=== PATIENT | female | born 1975 | race Caucasian/White ===

== ENCOUNTER 2021-05-18 14:56 | Emergency (ER) | payer OTHER, SELFPAY ==
--- NOTE | ~2021-05-18 | XR_ITS ---
EXAMINATION: XR foot LT min 3V DATE: 05/18/2021 15:24 INDICATION: Left foot injury. TECHNIQUE: 4 views of left foot were obtained. COMPARISON: None. FINDINGS: There is moderate hallux valgus. There is a nondisplaced transverse intra-articular fractur e of base of fifth metatarsal. There is mild osteoarthritis of first and second metatarsophalangeal j oints. IMPRESSION: 1. Nondisplaced transverse intra-articular fracture of base of fifth metatarsal. 2. Mild polyarticular osteoarthritis. Reviewed, dictated and finalized at location A. IMPRESSION: 1. Nondisplaced transverse intra-articular fracture of base of fifth metatarsal . 2. Mild polyarticular osteoarthritis.
[2021-05-18 15:13] VITALS: BP 102/61; PULSE 87; RESP 16; TEMP 37.1; O2SAT 100
--- NOTE | 2021-05-18 15:42 | ED.LOWEXIN ---
HPI - Extremity Injury (Lower) General Chief Complaint: Extremity Injury, Lower Stated Complaint: Left foot Pain Time Seen by Provider: 05/18/21 15:26 Source: patient and RN notes reviewed Mode of arrival: ambulatory Limitations: no limitations History of Present Illness HPI Narrative: Patient presents today complaining of a left foot injury since this morning. She was walking outside and rolled her foot, possibly stepping in a shallow hole. She is currently pain-free at rest, but this increases significantly with any weightbearing. She has been applying ice and elevating her foot. She has been ambulating with crutches. She does report some numbness to the dorsum of her foot and toes. MD complaint: foot injury Related Data Home Medications Medication Instructions Recorded Confirmed desog-e.estradiol/e.estradiol tablet 05/18/21 [Delfina (28)] Allergies Allergy/AdvReac Type Severity Reaction Status Date / Time Sulfa (Sulfonamide Allergy Unknown Verified 05/18/21 15:16 Antibiotics) Review of Systems Review of Systems: CONSTITUTIONAL: Denies body aches, fever, chills, or sweats. EYES: Denies visual changes, redness, or discharge. ENT: Denies rhinorrhea, congestion, sore throat, or otalgia. CARDIOVASCULAR: Denies chest pain, palpitations, or edema. RESPIRATORY: Denies cough or dyspnea. GASTROINTESTINAL: Denies abdominal pain, nausea, vomiting, or diarrhea. GENITOURINARY: Denies dysuria or hematuria. SKIN: Denies rash, itching, or wounds. MUSCULOSKELETAL: Denies back pain, or myalgia.+ Left foot injury NEUROLOGIC: Denies headache, tingling, or weakness.+ Numbness and tingling to the left foot PSYCH: Denies depression or anxiety. PMFSH Comments At time of signature, I have reviewed and agree with nursing past medical, surgical, social and family history unless otherwise noted. Please see nursing chart for further information. There is no relevant family history pertinent to the presenting complaint Exam Narrative: GENERAL: Well-appearing, well-nourished, and in no acute distress. HEAD: Normocephalic, atraumatic. EYES: EOMI. No redness or drainage. Conjunctivae normal. ENT: Mucous membranes pink and moist. NECK: Normal AROM. CHEST: No respiratory distress. EXTREMITIES: Left foot: Tenderness, ecchymosis, and localized edema about the fourth and fifth metatarsals. Distal sensation intact in all toes. Capillary refill normal. Pedal pulse normal. SKIN: Warm, dry, no rash. Capillary refill normal. Normal skin turgor. NEURO: No focal deficits. Alert and oriented x3. PSYCH: Normal affect. No signs of depression or anxiety. Course Vital Signs Vital signs: Vital Signs Temperature 98.8 F 05/18/21 15:13 Pulse Rate 87 05/18/21 15:13 Respiratory Rate 16 05/18/21 15:13 Blood Pressure 102/61 05/18/21 15:13 Pulse Oximetry 100 05/18/21 15:13 Temperature 98.8 F 05/18/21 15:13 Pulse Rate 87 05/18/21 15:13 Respiratory Rate 16 05/18/21 15:13 Blood Pressure 102/61 05/18/21 15:13 Pulse Oximetry 100 05/18/21 15:13 Reviewed Procedures Orthopedic Splinting/Casting Injury #1: Splinting/Casting Date: 05/18/21 Splinting/Casting Time: 15:48 Side: left Lower Extremity Injury Location: foot Lower Extremity Immobilizer: posterior splint Splint: customized in ED OCL: short leg Pre-Procedure Neuro Vascular Exam: normal Post-Procedure Neuro Vascular Exam: normal Additional Comments: Placed by tech MDM - Extremity Injury (Lower) Differential Diagnosis Differential diagnosis: Likely other (Foot fracture, foot sprain, foot contusion, ankle fracture, ankle sprain) Imaging Data Radiologist's impression: ITS Impressions Foot X-Ray 05/18/21 15:29 IMPRESSION: 1. Nondisplaced transverse intra-articular fracture of base of fifth metatarsal. 2. Mild polyarticular osteoarthritis. Critical Care Time Critic
== END 2021-05-18 16:10 | disposition home or self-care (01) ==
PROVIDERS: Emergency Provider Nurse Practitioner
DX: S92.355A Nondisplaced fracture of fifth metatarsal bone, left foot, initial encounter for closed fracture (principal); X50.9XXA Other and unspecified overexertion or strenuous movements or postures, initial encounter
CPT/HCPCS: 29515; 73630; 99204; G0463

== ENCOUNTER 2022-07-13 18:54 | Emergency (ER) | payer OTHER, SELFPAY ==
--- NOTE | 2022-07-13 18:56 | ED.SKABFB ---
HPI - Skin/Abscess/Foreign Bdy General Chief complaint: Skin/Abscess/Foreign Body Stated complaint: rash on hands and feet Time Seen by Provider: 07/13/22 18:56 Source: patient and RN notes reviewed History of Present Illness HPI narrative: Patient is a 47-year-old female presents the urgent care with complaints of a rash to the hands and feet. Patient states she does started a new supplement approximately 2 weeks ago from her chiropractor, Pily. Otherwise, patient denies of any new medications, creams or detergents. Patient states that it started on Thursday and seems to get worse whenever she is wearing socks or in the shower. Patient states she has been taking Zyrtec without much relief. No other acute complaints. No acute distress noted. Patient aware of the plan of care. Some parts of this dictation were generated by voice recognition software and may contain typographical and/or grammatical inaccuracies. Related Data Allergies Allergy/AdvReac Type Severity Reaction Status Date / Time Sulfa (Sulfonamide Allergy Unknown Verified 05/18/21 15:16 Antibiotics) Review of Systems Review of Systems: CONSTITUTIONAL: Denies fever, chills, or sweats. EYES: Denies visual changes, redness, or discharge. ENT: Denies rhinorrhea, congestion, sore throat, or otalgia. CARDIOVASCULAR: Denies chest pain, palpitations, or edema. RESPIRATORY: Denies cough or dyspnea. GASTROINTESTINAL: Denies abdominal pain, nausea, vomiting, or diarrhea. GENITOURINARY: Denies dysuria or hematuria. SKIN: Reports of a rash to the hands and feet MUSCULOSKELETAL: Denies back pain, joint pain, or myalgia. NEUROLOGIC: Denies headache, numbness, or weakness. All other systems reviewed are negative, except as documented in HPI. [facility] Past Medical History Medical History Nondisplaced fracture of fifth left metatarsal bone Family History Family History Other Cancer Cerebrovascular accident Hypertension Social History Social History Smoking status: Never smoker Alcohol intake: current Additional occupation/education comments: [employer] Gender identity (if verbalized by the patient): Female Comments At the time of my signature, I reviewed and agree with the nursing past medical, surgical, social, and family history. There is no relevant family history pertinent to the patient complaint. Exam Narrative: GENERAL: This is a well-nourished, well-developed patient, in no apparent distress. HEAD: normocephalic, atraumatic. EYES: PERRL. Sclera clear/white. Vision is grossly intact. EARS: External ears normal NOSE: External nose normal with no obvious nasal discharge, nares without redness, no rhinorrhea. THROAT: Mucous membranes moist NECK: Neck supple SKIN: Blanching erythemic nonraised dermatitis noted to the bilateral palms and soles of the feet NEURO: awake, alert, and oriented to person, place and time. There were no obvious focal neurologic abnormalities. EXTREMITIES: No clubbing, cyanosis, or edema. Course Course Level of Care: Express Care Visit Vital Signs Vital signs: Vital Signs Temperature 98.7 F 07/13/22 18:59 Pulse Rate 83 07/13/22 18:59 Respiratory Rate 16 07/13/22 18:59 Blood Pressure 107/62 07/13/22 18:59 Pulse Oximetry 100 07/13/22 18:59 Oxygen Delivery Room Air 07/13/22 18:59 Temperature 98.7 F 07/13/22 18:59 Pulse Rate 83 07/13/22 18:59 Respiratory Rate 16 07/13/22 18:59 Blood Pressure 107/62 07/13/22 18:59 Pulse Oximetry 100 07/13/22 18:59 Oxygen Delivery Room Air 07/13/22 18:59 Reviewed MDM - Skin/Abscess/Foreign Bdy MDM Narrative Medical decision making narrative: Advised patient to take Zyrtec or Claritin prior to bedtime and use the hydroxyzine as needed for itch. Would stop taking the new bower
[2022-07-13 18:59] VITALS: BP 107/62; PULSE 83; RESP 16; TEMP 37.1; O2SAT 100
== END 2022-07-13 19:20 | disposition home or self-care (01) ==
PROVIDERS: Emergency Provider Nurse Practitioner Family
DX: L30.9 Dermatitis, unspecified (principal)
CPT/HCPCS: 99213; G0463